=== PATIENT | female | born 1980 | race Caucasian/White ===

== ENCOUNTER → 2024-09-10 10:03 | Outpatient (CLI) | payer OTHER, SELFPAY ==
--- NOTE | 2024-09-10 10:07 | DI.US.S_ITS ---
PROCEDURE: US ABDOMEN LIMITED INDICATIONS: HEPATOMEGALY TECHNIQUE: Real-time scanning was performed of the abdominal and retroperitoneal organs, with image documentation. COMPARISON: None. FINDINGS: Liver: The liver is heterogenous in echotexture with a lobular contour and coarsened parenchyma without a discrete mass. The liver is normal in size. Gallbladder: Anechoic without stones or wall thickening. Negative Barragan sign. Pancreas: Mostly obscured by bowel gas. Spleen: Spleen is normal in size and homogeneous in echotexture. Miscellaneous: Trace fluid in the right upper quadrant. IMPRESSION: Liver cirrhosis is suspected. Dictated by: Geraldine Willis M.D. on 09/10/2024 at 14:18 Approved by: Geraldine Willis M.D. on 09/10/2024 at 14:20
== END ==
LOC: US 10:05
PROVIDERS: Family Provider Family Medicine; PCP Family Medicine; Referring Provider Family Medicine; Visit Provider Nurse Practitioner Family
DX: R16.0 Hepatomegaly, not elsewhere classified (principal)
CPT/HCPCS: 76705

== ENCOUNTER → 2024-12-05 13:15 | Outpatient (CLI) | payer OTHER, SELFPAY ==
--- NOTE | 2024-12-05 13:16 | DI.MG.S_ITS ---
MM diagnostic mammo unilat LT, US breast LT limited: 12/05/2024 BI-RADS: 3 CLINICAL: 44-year old female for left diagnostic mammogram and left diagnostic breast ultrasound that is a recall from screening on 09/12/2024. Tyrer-Cuzick lifetime risk of 23.4%. Current reported family history of breast cancer: maternal grandmother and mother. PRIOR EXAMS Mammogram(s): 09/12/2024, 07/02/2015. MAMMOGRAPHY TECHNIQUE: 2D and 3D (tomosynthesis) digital mammographic views obtained, with additional images as needed for full coverage. Current study was also evaluated with a Computer Aided Detection (CAD) system. ULTRASOUND TECHNIQUE Real-time banda scale and color doppler imaging of the area of clinical interest was performed with image documentation. Left targeted breast ultrasound of the area of clinical interest and the axilla was performed with image documentation. DENSITY Left: B. There are scattered areas of fibroglandular density. MAMMOGRAPHY FINDINGS Left: MLO only, Upper, Middle depth, measuring 0.5cm: There is an asymmetry seen only on one view. Left (finding-1): Lower Outer at 4:00, Middle depth, measuring 1cm. Previous report: Outer at 3:00: Correlating with findings on screening mammogram there is a circumscribed, oval, equal-density mass present. ULTRASOUND FINDINGS Left (finding-1): Lower Outer at 4:00, 8 cm from nipple, measuring 1.2 x 0.8 x 0.3 cm: There is an oval, circumscribed, hypoechoic mass that is parallel. Left: Outer at 2:30, 2 cm from nipple, measuring 0.3 x 0.2 x 0.2 cm: There is a complicated cyst present. This is an incidental finding. Left: Upper Outer at 2:00, 3 cm from nipple, measuring 0.4 x 0.4 x 0.2 cm: There is a simple anechoic cyst. Doppler shows no vascularity. This is an incidental finding. Left: Axilla, measuring 2.4 x 1.5 x 1.1 cm: There is a normal-appearing lymph node. IMPRESSION: Left (Asymmetry): MLO only, Upper, Middle depth, measuring 0.5cm * Probably Benign. Left (Mass): Lower Outer at 4:00, 8 cm from nipple, measuring 1.2 x 0.8 x 0.3 cm * Probably Benign. Left (Complicated Cyst): Outer at 2:30, 2 cm from nipple, measuring 0.3 x 0.2 x 0.2 cm * Probably Benign. RECOMMENDATIONS Left: MLO only, Upper, Middle depth * Six month followup with diagnostic mammography. Left: Lower Outer at 4:00, 8 cm from nipple * Six month followup with diagnostic mammography and diagnostic ultrasound. Left: Outer at 2:30, 2 cm from nipple * Six month followup with diagnostic ultrasound. COMMENTS: Findings and recommendations were conveyed to the patient during today's evaluation. In addition, this patient has an elevated lifetime risk for breast cancer of over 20%. Recommend consideration for annual screening breast MRI as an adjunct to screening mammography. OVERALL ASSESSMENT CATEGORY BI-RADS-3: Probably Benign. ELECTRONICALLY SIGNED: Akilah Braswell M.D. on 12/05/2024 at 06:06:35 PM PT Interpreting Station ID: [id number]
== END ==
PROVIDERS: Family Provider Family Medicine; PCP Family Medicine; Referring Provider Family Medicine; Visit Provider Family Medicine
DX: R92.8 Other abnormal and inconclusive findings on diagnostic imaging of breast (principal); N63.23 Unspecified lump in the left breast, lower outer quadrant; N60.02 Solitary cyst of left breast; Z80.3 Family history of malignant neoplasm of breast; N64.89 Other specified disorders of breast
CPT/HCPCS: 76642; 77065; G0279

== ENCOUNTER → 2024-12-05 14:18 | Outpatient (CLI) | payer OTHER, SELFPAY | LOC: US 14:18 | PROVIDERS: Family Provider Family Medicine; PCP Family Medicine; Referring Provider Family Medicine; Visit Provider Family Medicine | DX: R92.8 Other abnormal and inconclusive findings on diagnostic imaging of breast (principal); N64.89 Other specified disorders of breast; N63.23 Unspecified lump in the left breast, lower outer quadrant; N60.02 Solitary cyst of left breast | CPT/HCPCS: 76642 ==